=== PATIENT | female | born 1940 | race Caucasian/White ===

== ENCOUNTER 2023-08-15 15:02 | Inpatient (IN) | payer OTHER ==
[~2023-08-15] VITALS: Ht 165.1 cm; Wt 57.6 kg
[2023-08-15] MEDS: IV NS 0.9% 1,000 ML BAG IV ONE (15:30)
[2023-08-15 16:26] LABS: BASOPHILS % (AUTO) 0.1 % (0.0-2.0); HEMATOCRIT 37 % (33-45); HEMOGLOBIN 11.8 g/dL (11.5-14.8); LYMPHOCYTES # (AUTO) 0.7 K/uL (0.8-4.8); LYMPHOCYTES % (AUTO) 4.5 % (20.0-44.0); MEAN CORPUSCULAR HEMOGLOBIN 28 PG (26.0-33.0); MEAN CORPUSCULAR HGB CONC 32 g/dl (31.0-36.0); MEAN CORPUSCULAR VOLUME 88 fL (82-100); MONOCYTES # (AUTO) 1.1 K/uL (0.1-1.30); MONOCYTES % (AUTO) 6.6 % (2.0-12.0); NEUTROPHILS # (AUTO) 14.1 K/uL (1.8-8.9); NEUTROPHILS % (AUTO) 88.8 % (43.0-81.0); PLATELET COUNT (AUTO) 222 K/uL (150-450); RED BLOOD CELL COUNT(AUTO) 4.16 MIL/uL (4.0-5.2); RED CELL DISTRIBUTION WIDTH 15.5 % (11.5-15.0); WHITE BLOOD COUNT (AUTO) 15.8 K/uL (4.3-11.0)
[2023-08-15 16:47] LABS: THYROID STIMULATING HORMONE 1.055 uIU/mL (0.358-3.74)
[2023-08-15 16:54] LABS: ALANINE AMINOTRANSFERASE 31 U/L (12-78); ALBUMIN 2.9 g/dL (3.4-5.0); ALKALINE PHOSPHATASE 74 U/L (46-116); ASPARTATE AMINOTRANSFERASE 24 U/L (15-37); BILIRUBIN,DIRECT 0.2 mg/dL (0.0-0.2); CALCIUM, SERUM 10.1 mg/dL (8.5-10.1); CARBON DIOXIDE 24 mmol/L (21-32); CHLORIDE 103 mmol/L (98-107); CREATININE 0.9 mg/dL (0.6-1.3); GLUCOSE 127 mg/dL (74-106); POTASSIUM 3.5 mmol/L (3.5-5.1); SODIUM SERUM 137 mmol/L (136-145); TOTAL PROTEIN, SERUM 7.5 g/dL (6.4-8.2); UREA NITROGEN, BLOOD 21 mg/dL (7-18)
[2023-08-15 16:55] LABS: SALICYLATE 0.7 mg/dL (2.8-20.0)
[2023-08-15 16:57] LABS: ACETAMINOPHEN 0 ug/ml (10-30)
[2023-08-15] MEDS ORDERED: CEFTRIAXONE 1GM BAG (ER ONLY) 50 ML IV ONE (17:41)
[2023-08-15] MEDS: CEFTRIAXONE 1GM BAG (ER ONLY) 1 GM/50 ML PIGGYBACK IV ONE (17:45)
[2023-08-15] MEDS: AZITHROMYCIN 500 MG in IV D5W 250 ML IV ONE (17:45)
[2023-08-15] MEDS ORDERED: ACET-637 PO (17:58)
[2023-08-15] MEDS: AZITHROMYCIN 500 MG in IV D5W 250 ML IV SCH (18:00)
[2023-08-15] MEDS ORDERED: MAGNESIUM HYDROXIDE 30 ML UDC PO PRN (18:00)
[2023-08-15] MEDS ORDERED: ZOLPIDEM TARTRATE 5 MG TABLET PO PRN (18:00)
[2023-08-15] MEDS ORDERED: ACETAMINOPHEN 325 MG TABLET PO PRN (18:00)
[2023-08-15] MEDS ORDERED: MAG HYDROX/AL HYDROX/SIMETH 30 ML UDC PO PRN (18:00)
[2023-08-15] MEDS ORDERED: ONDANSETRON HCL/PF 4 MG/2 ML VIAL IVP PRN (18:00)
[2023-08-15] MEDS: CEFTRIAXONE 1 G in IV D5W 50 ML IV SCH (18:00)
[2023-08-15] MEDS ORDERED: Z GUARD REMEDY 4 OZ OINT TP PRN (18:00)
[2023-08-15 18:03] LABS: APPEARANCE,URINE CLEAR (CLEAR); BILIRUBIN,URINE 1+ (NEGATIVE); BLOOD, URINE 2+ Ery/uL (NEGATIVE); COLOR,URINE YELLOW (YELLOW); KETONES,URINE TRACE mg/dL (NEGATIVE); LEUKOCYTE ESTERASE ,URINE NEGATIVE (NEGATIVE); NITRITE, URINE NEGATIVE (NEGATIVE); PH,URINE 5.5 (5.0-8.0); PROTEIN,URINE 1+ mg/dl (NEGATIVE); UGLUCOSE NEGATIVE (NEGATIVE)
[2023-08-15 18:13] LABS: AMPHETAMINE, URINE NEGATIVE (NEGATIVE); BARBITURATE, URINE NEGATIVE (NEGATIVE); BENZODIAZEPINE, URINE NEGATIVE (NEGATIVE); CANNABINOID, URINE NEGATIVE (NEGATIVE); COCCAINE, URINE NEGATIVE (NEGATIVE); OPIATE, URINE NEGATIVE (NEGATIVE); PHENCYCLIDINE SCREEN,URINE NEGATIVE (NEGATIVE)
[2023-08-15 18:32] LABS: WBC,URINE 0-2 /HPF (0-3)
[2023-08-15 18:33] LABS: ADD URINE CULTURE NO; BACTERIA,URINE 1+ /HPF (None Seen); MUCUS,URINE Moderate /LPF (None Seen)
[2023-08-15 20:30] VITALS: BP 134/62; TEMP 99.5; O2SAT 95
[2023-08-15] MEDS: IV 1/2NS 1000 ML 1,000 ML IV PRN (20:58)
[2023-08-15] MEDS: ENOXAPARIN SODIUM 40 MG/0.4 ML DISP.SYRIN SQ SCH (21:00)
[2023-08-16] VITALS: BP 123/58; TEMP 99.5; O2SAT 94
[2023-08-16 05:00] VITALS: BP 118/56; TEMP 98.8; O2SAT 97
[2023-08-16 07:20] LABS: BASOPHILS % (AUTO) 0.2 % (0.0-2.0); EOSINOPHILS % (AUTO) 0.2 % (0.0-6.0); HEMATOCRIT 31 % (33-45); HEMOGLOBIN 10.2 g/dL (11.5-14.8); LYMPHOCYTES # (AUTO) 1.4 K/uL (0.8-4.8); LYMPHOCYTES % (AUTO) 11.5 % (20.0-44.0); MEAN CORPUSCULAR HEMOGLOBIN 28 PG (26.0-33.0); MEAN CORPUSCULAR HGB CONC 33 g/dl (31.0-36.0); MEAN CORPUSCULAR VOLUME 87 fL (82-100); MONOCYTES % (AUTO) 7.9 % (2.0-12.0); NEUTROPHILS # (AUTO) 9.8 K/uL (1.8-8.9); NEUTROPHILS % (AUTO) 80.2 % (43.0-81.0); PLATELET COUNT (AUTO) 198 K/uL (150-450); RED BLOOD CELL COUNT(AUTO) 3.62 MIL/uL (4.0-5.2); RED CELL DISTRIBUTION WIDTH 15.4 % (11.5-15.0); WHITE BLOOD COUNT (AUTO) 12.2 K/uL (4.3-11.0)
[2023-08-16 07:38] LABS: CALCIUM, SERUM 9.6 mg/dL (8.5-10.1); CARBON DIOXIDE 24 mmol/L (21-32); CHLORIDE 104 mmol/L (98-107); CREATININE 0.7 mg/dL (0.6-1.3); GLUCOSE 100 mg/dL (74-106); PHOSPHORUS 2.6 mg/dL (2.5-4.9); POTASSIUM 3.3 mmol/L (3.5-5.1); SODIUM SERUM 137 mmol/L (136-145); UREA NITROGEN, BLOOD 18 mg/dL (7-18)
[2023-08-16] MEDS: PANTOPRAZOLE 40 MG TABLET.DR PO SCH (08:00)
[2023-08-16 08:15] VITALS: BP 140/73; TEMP 98.4; O2SAT 95
[2023-08-16] MEDS: POTASSIUM CHLORIDE 20 MEQ TAB.PRT.SR PO SCH (10:25)
[2023-08-16 15:50] VITALS: BP_SYST 115; BP_SYST 128; BP_DIAS 62; BP_DIAS 78; TEMP 98.8; O2SAT 98
[2023-08-16 20:00] VITALS: BP 135/85; TEMP 98.2; O2SAT 97
[2023-08-17 07:15] LABS: BASOPHILS % (AUTO) 0.1 % (0.0-2.0); EOSINOPHILS # (AUTO) 0.1 K/uL (0.0-0.7); EOSINOPHILS % (AUTO) 1.1 % (0.0-6.0); HEMATOCRIT 31 % (33-45); HEMOGLOBIN 10.3 g/dL (11.5-14.8); LYMPHOCYTES # (AUTO) 0.8 K/uL (0.8-4.8); LYMPHOCYTES % (AUTO) 10.6 % (20.0-44.0); MEAN CORPUSCULAR HEMOGLOBIN 28 PG (26.0-33.0); MEAN CORPUSCULAR HGB CONC 33 g/dl (31.0-36.0); MEAN CORPUSCULAR VOLUME 86 fL (82-100); MONOCYTES # (AUTO) 0.6 K/uL (0.1-1.30); MONOCYTES % (AUTO) 8.6 % (2.0-12.0); NEUTROPHILS # (AUTO) 5.7 K/uL (1.8-8.9); NEUTROPHILS % (AUTO) 79.6 % (43.0-81.0); PLATELET COUNT (AUTO) 216 K/uL (150-450); RED BLOOD CELL COUNT(AUTO) 3.66 MIL/uL (4.0-5.2); RED CELL DISTRIBUTION WIDTH 15.4 % (11.5-15.0); WHITE BLOOD COUNT (AUTO) 7.2 K/uL (4.3-11.0)
[2023-08-17 07:56] LABS: CALCIUM, SERUM 9.6 mg/dL (8.5-10.1); CREATININE 0.7 mg/dL (0.6-1.3); MAGNESIUM 1.7 mg/dL (1.8-2.4); PHOSPHORUS 2.7 mg/dL (2.5-4.9); POTASSIUM 3.6 mmol/L (3.5-5.1)
[2023-08-17 08:35] VITALS: BP 160/75; TEMP 97.9; O2SAT 97
[2023-08-17] MEDS: MAGNESIUM OXIDE 400 MG TABLET PO ONE (10:29)
[2023-08-17 12:00] VITALS: BP 145/68; TEMP 98.6; O2SAT 95
[2023-08-17 16:19] VITALS: BP 156/69; TEMP 99.6; O2SAT 96
[2023-08-17 20:00] VITALS: BP 137/64; TEMP 98.1; O2SAT 97
[2023-08-17 21:46] VITALS: BP 137/64; TEMP 98.1; O2SAT 97
[2023-08-18 07:36] LABS: BASOPHILS % (AUTO) 0.5 % (0.0-2.0); EOSINOPHILS # (AUTO) 0.1 K/uL (0.0-0.7); HEMATOCRIT 30 % (33-45); LYMPHOCYTES # (AUTO) 0.9 K/uL (0.8-4.8); LYMPHOCYTES % (AUTO) 15.1 % (20.0-44.0); MEAN CORPUSCULAR HEMOGLOBIN 29 PG (26.0-33.0); MEAN CORPUSCULAR HGB CONC 34 g/dl (31.0-36.0); MEAN CORPUSCULAR VOLUME 87 fL (82-100); MONOCYTES # (AUTO) 0.6 K/uL (0.1-1.30); MONOCYTES % (AUTO) 10.2 % (2.0-12.0); NEUTROPHILS # (AUTO) 4.4 K/uL (1.8-8.9); NEUTROPHILS % (AUTO) 72.2 % (43.0-81.0); PLATELET COUNT (AUTO) 203 K/uL (150-450); RED BLOOD CELL COUNT(AUTO) 3.45 MIL/uL (4.0-5.2); RED CELL DISTRIBUTION WIDTH 15.4 % (11.5-15.0)
[2023-08-18 07:58] LABS: CALCIUM, SERUM 9.8 mg/dL (8.5-10.1); CARBON DIOXIDE 25 mmol/L (21-32); CHLORIDE 104 mmol/L (98-107); CREATININE 0.6 mg/dL (0.6-1.3); GLUCOSE 106 mg/dL (74-106); MAGNESIUM 1.9 mg/dL (1.8-2.4); POTASSIUM 3.5 mmol/L (3.5-5.1); SODIUM SERUM 138 mmol/L (136-145); UREA NITROGEN, BLOOD 12 mg/dL (7-18)
[2023-08-18 08:00] VITALS: BP 146/68; TEMP 98.8; O2SAT 96
[2023-08-18 16:00] VITALS: BP 119/50; TEMP 99.3; O2SAT 96
[2023-08-18 20:00] VITALS: BP_SYST 133; BP_SYST 137; BP_DIAS 57; BP_DIAS 77; TEMP 98.4; O2SAT 96
[2023-08-19 07:30] VITALS: BP 170/76; TEMP 98.4; O2SAT 96
[2023-08-19 20:00] VITALS: BP 144/67; TEMP 98.6; O2SAT 95
[2023-08-19] MEDS: MIRTAZAPINE 15 MG TABLET PO SCH (21:54)
[2023-08-20 07:30] VITALS: BP 149/75; TEMP 98.2; O2SAT 96
[2023-08-20] MEDS ORDERED: MIRT-90 PO (10:10)
[2023-08-20] MEDS ORDERED: AMOX-430 PO (10:10)
[2023-08-20 16:16] VITALS: BP 144/64; TEMP 98.6; O2SAT 96
[2023-08-20 20:00] VITALS: BP 128/73; TEMP 99; O2SAT 96
[2023-08-21 08:00] VITALS: BP 142/77; TEMP 98.4; O2SAT 96
== END 2023-08-21 16:50 | DRG 193 ==
LOC: ER 15:03 → MED 18:27 → TELE 20:42 → MED 08-21 08:55
PROVIDERS: ADMIT Student in an Organized Health Care Education/Training Program
DX: J15.9 Unspecified bacterial pneumonia (principal); G93.41 Metabolic encephalopathy; I10 Essential (primary) hypertension; F32.9 Major depressive disorder, single episode, unspecified; Z20.822 Contact with and (suspected) exposure to COVID-19; R62.7 Adult failure to thrive; Z81.8 Family history of other mental and behavioral disorders; Z86.16 Personal history of COVID-19; Z73.6 Limitation of activities due to disability; Z68.21 Body mass index [BMI] 21.0-21.9, adult
CPT/HCPCS: 36415; 71045-TC; 73502; 80048-TC; 80076-TC; 81001; 83735-TC; 84100-TC; 84443-TC; 84484-TC; 85025-TC; 87040-TC; 97110-TC; 97116-TC; 97530-TC; 97535-TC; A4223; G0378; J0456; J0696; J1650; J3490; J7030; J7060